=== PATIENT | female | born 1950 | race Caucasian/White ===

== ENCOUNTER 2020-06-21 19:27 | Emergency (ER) | payer MEDICARE, OTHER ==
[~2020-06-21 19:27] MED LIST: ASPIRIN81 MG PO; BACTRIM DS TAB1 EACH PO; CYCLOBENZAPRINE10 MG PO; SIMVASTATIN20 MG PO; TRAMADOL HCL50 MG PO
== END 2020-06-21 20:32 | disposition left against medical advice (07) ==
LOC: ER1 19:27
DX: R00.0 Tachycardia, unspecified (principal); Z53.21 Procedure and treatment not carried out due to patient leaving prior to being seen by health care provider

== ENCOUNTER 2020-06-24 12:29 | Emergency (ER) | payer MEDICARE, OTHER ==
[2020-06-24 14:53] LABS: HEMOGLOBIN 13.8 gm/dl (12.3-15.3); RED BLOOD COUNT 4.45 M/UL (4.00-5.10); WHITE BLOOD COUNT 6.7 K/UL (4.5-11.0)
[2020-06-24 15:08] LABS: BUN/CREATININE RATIO 23 (0-10)
[2020-06-24] MEDS ORDERED: ZOFRAN4 MG PO (15:58)
== END 2020-06-24 16:05 | disposition home or self-care (01) ==
LOC: ER1 12:29
PROVIDERS: Physician Assistant Medical
DX: R53.1 Weakness (principal); R10.12 Left upper quadrant pain; R11.0 Nausea; I10 Essential (primary) hypertension; Z98.890 Other specified postprocedural states
CPT/HCPCS: 71045; 80053; 81001; 82550; 82553; 83690; 84439; 84443; 84484; 85025; 85652; 86140; 93005; 99284

== ENCOUNTER → 2020-06-30 | Outpatient (CLI) | payer MEDICARE, OTHER ==
[~2020-06-30] MED LIST changes: +ZOFRAN4 MG PO
== END ==
LOC: HEART 5 14:24
DX: R00.2 Palpitations (principal)

== ENCOUNTER → 2020-08-04 | Outpatient (CLI) | payer MEDICARE, OTHER | LOC: HEART 5 08:50 | DX: R00.2 Palpitations (principal); I10 Essential (primary) hypertension; I34.0 Nonrheumatic mitral (valve) insufficiency; I07.1 Rheumatic tricuspid insufficiency | CPT/HCPCS: 93306 ==

== ENCOUNTER → 2020-10-18 | Outpatient (CLI) | payer MEDICARE, OTHER | LOC: RAD 12:35 | DX: R06.00 Dyspnea, unspecified (principal); J98.11 Atelectasis | CPT/HCPCS: 71046 ==

== ENCOUNTER → 2020-10-29 | Outpatient (CLI) | payer MEDICARE, OTHER | LOC: HEART 5 08:54 | DX: R06.00 Dyspnea, unspecified (principal); R05 Cough | CPT/HCPCS: 94010 ==

== ENCOUNTER → 2021-04-22 | Outpatient (CLI) | payer MEDICARE, OTHER | LOC: KOH-I 11:00 | DX: R06.00 Dyspnea, unspecified (principal); N28.89 Other specified disorders of kidney and ureter | CPT/HCPCS: 71250 ==

== ENCOUNTER → 2021-04-27 | Outpatient (CLI) | payer MEDICARE, OTHER | LOC: EXRD 14:08 | DX: N28.1 Cyst of kidney, acquired (principal) | CPT/HCPCS: 76775 ==